=== PATIENT | male | born 1955 | race Caucasian/White ===

== ENCOUNTER 2017-03-07 12:53 | Emergency (ER) | payer OTHER ==
[~2017-03-07] VITALS: Ht 175.3 cm; Wt 63.5 kg
[2017-03-07 13:01] VITALS: BP 97/58
--- NOTE | 2017-03-07 13:30 | NUR ---
Note undone in EDM - 03/07/17 at 1931 by OLGA 61M BIBA FOR ALOC; PER REPORT FROM EMT, PT WOKE UP ALOC...PT NORMALLY AOX4. PT IS VERBAL AND AWAKE, NOT ABLE TO FOLLOW SIMPLE COMMANDS. GCS=14. NO INJURY OR TRAUMA AT THIS TIME. RR ARE EVEN AND UNLABORED. NAD. VSS. PT POSITIONED CLOSE TO NURSES STATION. WILL CONTINUE TO [facility]. ER MD HARRELL AWARE OF PT STATUS.
--- NOTE | 2017-03-07 13:30 | NUR ---
61M BIBA FOR ALOC; PER REPORT FROM EMT, PT WOKE UP ALOC...PT NORMALLY AOX4. PT IS VERBAL AND AWAKE, NOT ABLE TO FOLLOW SIMPLE COMMANDS. GCS=13. NO INJURY OR TRAUMA AT THIS TIME. RR ARE EVEN AND UNLABORED. NAD. VSS. PT POSITIONED CLOSE TO NURSES STATION. WILL CONTINUE TO [facility]. ER MD HARRELL AWARE OF PT STATUS.
[2017-03-07] MEDS: LORazepam 2 MG/ML VIAL IM ONE ×2 (13:48)
[2017-03-07 14:57] LABS: ANION GAP 10.7 (8-16); CARBON DIOXIDE 24.8 mmol/L (21-32); CHLORIDE 108 mmol/L (98-107); CREATININE 0.8 mg/dL (0.7-1.3); GFR ARICAN-AMERICAN 126 mL/min (>90); GLUCOSE 86 mg/dL (74-106); POTASSIUM 4.5 mmol/L (3.5-5.1); SODIUM SERUM 139 mmol/L (136-145); UREA NITROGEN, BLOOD 18 mg/dL (7-18)
--- NOTE | 2017-03-07 15:30 | NUR ---
patient calm. skin and circulation check wnl, vss, nad. of pt by bedside. update on plan of care...verbalized understanding. will continue to monitor.
[2017-03-07 15:33] LABS: BASOPHILS % (AUTO) 0.5 % (0.0-2.0); EOSINOPHILS # (AUTO) 0.1 K/uL (0-0.4); EOSINOPHILS % (AUTO) 4.8 % (0.0-4.0); HEMATOCRIT 29.4 % (36-52); HEMOGLOBIN 9.8 g/dL (12.0-18.0); LYMPHOCYTES # (AUTO) 0.7 K/uL (2.0-11.5); LYMPHOCYTES % (AUTO) 28.4 % (20.5-51.1); MEAN CORPUSCULAR HEMOGLOBIN 34 pg (27-31); MEAN CORPUSCULAR HGB CONC 33 g/dL (33-37); MEAN CORPUSCULAR VOLUME 101 fL (80-94); MONOCYTES # (AUTO) 0.3 K/uL (0.8-1.0); MONOCYTES % (AUTO) 12.3 % (1.7-9.3); NEUTROPHILS # (AUTO) 1.5 K/uL (1.8-7.7); PLATELET COUNT (AUTO) 105 K/uL (140-450); RED BLOOD CELL COUNT(AUTO) 2.91 MIL/uL (4.20-6.10); RED CELL DISTRIBUTION WIDTH 24.6 % (11.6-13.7)
[2017-03-07 15:38] LABS: WHITE BLOOD COUNT (AUTO) 2.6 K/uL (4.8-10.8)
[2017-03-07] MEDS ORDERED: LACT10SO1 PO (15:40)
[2017-03-07] MEDS ORDERED: RIFA550T PO (15:40)
[2017-03-07 15:54] LABS: SALICYLATE < 2.8 mg/dL (2.8-20.0)
[2017-03-07 16:01] LABS: ASPARTATE AMINOTRANSFERASE 50 U/L (15-37); TOTAL BILIRUBIN 4.1 mg/dL (0.0-1.0)
[2017-03-07 16:02] LABS: ACETAMINOPHEN < 0.5 ug/ml (10-30); ALBUMIN 2.5 g/dL (3.4-5.0)
--- NOTE | 2017-03-07 16:20 | NUR ---
neuro baseline same throughout shift. gcs=13. nad. vss. will continue to monitor.
[2017-03-07 16:47] LABS: APPEARANCE,URINE CLEAR (CLEAR); BILIRUBIN,URINE NEGATIVE (NEGATIVE); BLOOD, URINE TRACE-L (NEGATIVE); COLOR,URINE YELLOW (YELLOW); LEUKOCYTE ESTERASE ,URINE NEGATIVE (NEGATIVE); NITRITE, URINE NEGATIVE (NEGATIVE); PH,URINE 7.5 (5.0-9.0); UGLUCOSE TRACE (NEGATIVE)
[2017-03-07 16:53] LABS: BARBITURATE, URINE NEG. ng/ml (NEG <=200); BENZODIAZEPINE, URINE NEG. ng/mL (NEG <=200); CANNABINOID, URINE NEG. ng/mL (NEG <=50); COCAINE, URINE NEG. ng/mL (NEG <=300); OPIATE, URINE NEG. ng/mL (NEG <=2000); PHENCYCLIDINE SCREEN,URINE NEG. ng/mL (NEG <=25)
[2017-03-07 16:56] LABS: RBC,URINE 0-5 (RARE) /HPF (0-5); WBC,URINE NONE SEEN /HPF (0-5)
[2017-03-07] MEDS: LACTULOSE 20 GM/30 ML UDC PR ONE (17:30)
--- NOTE | 2017-03-07 17:30 | NUR ---
patient calm. skin and circulation check wnl, vss, nad. of pt by bedside. update on plan of care...verbalized understanding. will continue to monitor.
--- NOTE | 2017-03-07 18:30 | NUR ---
PT RELEASED FROM [facility]; PT CALM; NOT ATTEMPTING TO REMOVED IV CATHETER OR MONITORING LINES.
--- NOTE | 2017-03-07 19:19 | NUR ---
Pt report given to Pim RN. Transfer of care at this time.
--- NOTE | 2017-03-07 19:20 | NUR ---
GOT REPORT FROM SIDNEY, PT. RESTING IN BED, NO S/SX OF DISTRESS AT THIS TIME.
[2017-03-07 21:00] VITALS: BP 112/65
--- NOTE | 2017-03-07 21:00 | NUR ---
PT. TRANSFEERED BY [facility] AT THIS TIME. NO S/SX OF DISTRESS.
--- NOTE | 2017-03-07 21:00 | NUR ---
Patient to be transferred to [id number]. Is being transferred due to [employer]. Receiving facility has accepting physician and available space. ER physician has signed transfer form. Patient or responsible alliance party has agreed to transfer and signed form. Patient belongings inventoried and will be sent with patient. Copy of nursing notes, lab reports, EKG, Physicians Orders and X-rays to be sent with patient. Report called to DANIEL SÁNCHEZ at receiving facility. [facility] ambulance service has been called for transfer. ETA is 30 MINS. REPORT GIVEN BY DANIEL LITTLE AM SHIFT.
== END 2017-03-07 21:00 | disposition short-term general hospital (02) ==
LOC: MED 12:53
DX: K72.90 Hepatic failure, unspecified without coma (principal); R40.4 Transient alteration of awareness; I50.9 Heart failure, unspecified; Z95.1 Presence of aortocoronary bypass graft; Z79.899 Other long term (current) drug therapy; Z88.5 Allergy status to narcotic agent
CPT/HCPCS: 36415; 80053; 80305; 81001; 82140; 82550; 84484; 85025; 93005; 96372; 99285; C1758; G0480; G0482; J2060